=== PATIENT | male | born 1965 | race Caucasian/White ===

== ENCOUNTER 2019-05-29 20:13 | Observation (INO) ==
[2019-05-29] MEDS ORDERED: NS 1,000 ML IV ONE ×3 (20:19→22:10)
[2019-05-29 20:26] LABS: BASO# 0.03 X1000 (0.0-0.2); BASO% 0.3 % (0.0-0.8); EOS# 0.31 X1000 (0.0-0.7); EOS% 3.6 % (0.0-10.0); HEMOGLOBIN 13.8 g/dL (14.0-18.0); IMM GRAN# 0.02 X1000 (0.0-0.04); IMM GRAN% 0.2 % (0.0-0.5); LYMPH# 3.14 X1000 (1.2-3.4); LYMPH% 36.1 % (20.5-51.1); MCH 28.2 PG (27-31); MCHC 33.7 g/dL (33-37); MCV 83.7 FL (81-99); MONO# 0.94 X1000 (0.11-0.59); MONO% 10.8 % (1.7-9.3); MPV 8.7 FL (7.4-10.4); NEUT# 4.27 X1000 (1.4-6.5); PLT 304 X1000 (130-400); RDW 13.2 % (11.5-14.5); WBC 8.71 X1000 (4.8-10.8)
[2019-05-29] MEDS ORDERED: AMMONIA AROMATIC ONE (20:26)
[2019-05-29] MEDS ORDERED: NARCAN ONE (20:31)
[2019-05-29] MEDS ORDERED: NARCAN IV ONE (20:34)
[2019-05-29 20:42] LABS: INR 0.85
--- NOTE | 2019-05-29 20:42 | Diag Imaging Result Doc PS360 ---
EXAM: CT HEAD W/O CONTRAST 05/29/2019 HISTORY: ams TECHNIQUE: This exam was performed using automated exposure control, adjustment of mA or kV according to patient size, and/or use of iterative reconstruction technique. COMMENT: There is no evidence of mass effect, bleed, or abnormal extra-axial fluid collection. There is some lucency in the periventricular white matter adjacent to the left frontal horn. This was also present on 01/08/2013. The visualized paranasal sinuses are clear. The calvarium is intact. There is persistence the metopic suture. IMPRESSION: No evidence of acute intracranial disease. Minimal chronic ischemic white matter change. Electronically signed by Slick Brantley 05/29/2019 8:39 PM
[2019-05-29 20:43] LABS: PTT 25.1 Seconds (22.3-41.8)
[2019-05-29 20:50] LABS: AGAP 14; ALBUMIN 4.6 g/dL (3.5-5.0); ALKALINE PHOSPHATASE 78 U/L (32-122); BUN 14 mg/dL (8-22); CALCIUM 9.5 mg/dL (8.8-10.2); CHLORIDE 95 mmol/L (98-107); COSMO 273; CREATININE 0.9 mg/dL (0.7-1.2); ESTIMATED GFR > 60; GLUCOSE 149 mg/dL (70-104); MAGNESIUM 2.1 mg/dL (1.5-2.7); POTASSIUM 4.4 mmol/L (3.5-5.1); SODIUM 135 mmol/L (136-145); TCO2 27 mmol/L (25-35); TOTAL BILIRUBIN < 0.15 mg/dL (0.20-1.00); TOTAL PROTEIN 7.7 g/dL (6.3-8.3)
[2019-05-29 20:54] LABS: URINE SOURCE CLEAN CATCH
[2019-05-29 20:59] LABS: GOT 17 U/L (10-34); GPT < 5 U/L (10-44)
[2019-05-29 20:59] LABS: BILIRUBIN URINE NEGATIVE (NEGATIVE); BLOOD URINE NEGATIVE (NEGATIVE); COLOR STRAW; GLUCOSE URINE 500 mg/dL (NEGATIVE); KETONE URINE NEGATIVE (NEGATIVE); LEUKOCYTES URINE NEGATIVE (NEGATIVE); NITRITE URINE NEGATIVE (NEGATIVE); PROTEIN URINE NEGATIVE (NEGATIVE); SP GRAVITY URINE 1.009; TURBIDITY URINE CLEAR (CLEAR); UROBILINOGEN URINE NORMAL (NORMAL)
[2019-05-29 21:01] LABS: UR EPITHELIAL CELLS <10 /HPF (<10); URINE BACTERIA NEGATIVE /HPF; URINE RBC <10 /HPF (<10); URINE WBC <10 /HPF (<10)
--- NOTE | 2019-05-29 21:10 | Diag Imaging Result Doc PS360 ---
EXAM: CHEST-PORTABLE 05/29/2019 HISTORY: strioe protocol TECHNIQUE: Erect AP portable chest at 2100 COMMENT: The inspiration is less optimal than on 03/28/2015, otherwise there is no evidence of acute cardiac or pulmonary disease. IMPRESSION: No acute abnormality. Electronically signed by Slick Brantley 05/29/2019 9:08 PM
[2019-05-29 21:12] LABS: UR AMPHETAMINES QUAL NONE DETECTED (NONE DETECT); UR BARBITUATES QUAL NONE DETECTED (NONE DETECT); UR BENZODIAZEPIN QUAL PRESUMPTIVE POSITIVE (NONE DETECT); UR CANNABINOIDS QUAL NONE DETECTED (NONE DETECT); UR COCAINE QUAL NONE DETECTED (NONE DETECT); UR METHADONE QUAL NONE DETECTED (NONE DETECT); UR METHAMPHETAMINE QUAL NONE DETECTED (NONE DETECT); UR OPIATES QUAL NONE DETECTED (NONE DETECT); UR OXYCODONE QUAL NONE DETECTED (NONE DETECT); UR PCP QUAL NONE DETECTED (NONE DETECT); UR PROPOXYPHENE QUAL NONE DETECTED (NONE DETECT); UR TCA QUAL NONE DETECTED (NONE DETECT)
[2019-05-30] MEDS ORDERED: FLU VACCINE IM ONE (01:10)
--- NOTE | 2019-05-30 05:16 | EKG Report ---
Test Performed on : 05/29/2019 8:18:46 PM Test Reason : CP Blood Pressure : / mmHG Vent. Rate : 115 BPM Atrial Rate : 115 BPM P-R Int : 160 ms QRS Dur : 092 ms QT Int : 328 ms P-R-T Axes : 027 -04 029 degrees QTc Int : 453 ms Sinus tachycardia. Otherwise normal ECG When compared with ECG of 28-MAR-2015 13:22, No significant change was found Unconfirmed Result
--- NOTE | 2019-05-30 10:50 | Diag Imaging Result Doc PS360 ---
EXAM: MRI BRAIN W/O CONTRAST HISTORY: AMS TECHNIQUE: MRI brain without contrast. Axial, sagittal, and coronal images obtained in multiple COMPARISON: Head CT from 05/29/2019 FINDINGS: No recent infarct. Mild increased signal in the white matter on the T2 and FLAIR weighted images. No mass or midline shift. No hydrocephalus. No epidural or subdural fluid collection. Normal orbits. No sinus opacification. IMPRESSION: Increased signal in the deep white matter which may be microvascular ischemic changes. No mass or recent infarct. Electronically signed by Delonte Chandler 05/30/2019 10:48 AM
--- NOTE | 2019-05-30 15:12 | Vascular Study Report ---
EXAM: Carotid Ultrasound HISTORY: AMS, unresponsive, h/o CVA TECHNIQUE: Carotid Doppler ultrasound COMPARISON: None. FINDINGS: Right: Flow in the subclavian artery. Normal flow in the common carotid artery. No occlusion or stenosis. Moderate plaque in the bulb. Peak systolic velocity in the internal carotid artery is 85 cm/s. ICA/CC ratio 0.9. Antegrade vertebral flow. Left: Normal flow in the subclavian artery. Normal flow in the common carotid artery. No occlusion or stenosis. There is a small amount of plaque in the bulb. Peak systolic velocity in the internal carotid artery 73 cm/s. The ICA/CCA ratio 0.7. Antegrade vertebral flow. IMPRESSION: Mild stenosis within each carotid bulb of between 30 and 50% Electronically signed by Delonte Chandler 05/30/2019 3:09 PM
--- NOTE | 2019-05-30 16:05 | HISTORY AND PHYSICAL ---
CHIEF COMPLAINT: Altered mental status. HPI: This is a 53-year-old male with a prior history of hypertension, CVA with resulting left- sided weakness, COPD, who presents to the emergency room via EMS after his mother found him unresponsive. At the time of my exam the patient is alone. There is no family members present so history is taken from the ER records as well as the patient's history. On arrival to the emergency room the patient was disoriented, confused, very slow to respond. He did withdraw from an ammonia capsule. CT of the head revealed no acute intracranial disease. He was subsequently admitted to the floor. In reviewing the nurse's notes, he became more alert through the night. At the time of my exam he is awake, he is alert. He is aware that he is at [facility]. He does knows that today is Wednesday. He does not remember coming into the hospital. He remembers waking up on the floor. The patient did state that he lives with his mother and she had been out of town visiting his sister. Wednesday night he took his dog out to walk. He remembers walking out the door. He states the next thing he remembers is his neighbor and his neighbor's having him in the house putting him in a warm shower. He stated he had been incontinent of stool and urine and he was freezing. He stated they cleaned him up, got him warm and called his mother. He thinks that was sometime Wednesday morning. He does not remember his mother coming home. According to the chart, she found him unresponsive and called 911. He denied feeling ill or having any difficulties prior to this episode. He has had no further urine or stool incontinence since presenting to the hospital. PAST MEDICAL HISTORY: 1. According to the chart CVA with left-sided weakness. 2. Diabetes mellitus. 3. COPD. 4. Hypertension. 5. Gastroesophageal reflux disease. 6. BPH. 7. Obstructive sleep apnea. 8. Depression. 9. Gout. PAST SURGICAL HISTORY: Back surgery, knee surgery, neck surgery, skin cancer removed from his right hand. ALLERGIES: Penicillin which causes anaphylaxis. FAMILY HISTORY: Is positive for hypertension and diabetes in parents and grandparents although he is not sure. SOCIAL HISTORY: He lives with his mother. He denies any alcohol, tobacco, or illicit drug use. Primary care doctor is Pantera Renner. REVIEW OF SYSTEMS: Discussed with patient with pertinent positives stated in the HPI. He denied any syncope or known syncope, any dizziness, any chest pain, palpitations, any shortness of breath, cough, fever, chills, nausea, vomiting, diarrhea, constipation, black or bloody vomitus or stools, any hematuria, dysuria, frequency, urgency. PHYSICAL EXAMINATION: GENERAL: This is a 53-year-old gentleman who is sitting up in the bed on the [facility] floor in no distress. VITAL SIGNS: Blood pressure is 141/90 with a heart rate of 89, respirations are 16, temperature is 98.1 degrees with O2 saturations 98 to 100 on 2 L. HEENT: Pupils are equal, round, react to light. EOMs are intact. Sclerae are anicteric. Head is normocephalic, atraumatic. Mucous membranes are moist. NECK: Supple with trachea midline. CARDIOVASCULAR: Regular rate and rhythm. S1 and S2 appreciated. He has no lower extremity edema. Calves are nontender bilateral with peripheral pulses palpable x4 extremities. PULMONARY: Breath sounds are clear with no increased work of breathing noted. Chest rises and falls symmetric respiration. Chest wall is nontender to palpation. GASTROINTESTINAL: Abdomen soft, nontender, nondistended. Bowel sounds in all 4 quadrants. GENITOURINARY: No CVA or suprapubic tenderness. Yates is patent to bedside bag with clear yellow urine drainage. NEUROLOGIC: He is alert, he is oriented to person, to place and to day. Forehead is spared. No facial droop. Speech is clear but slow. Has no tongue or uvula deviation. Shoulder shrug is equal. No plantar drift. Deicer Repairer are equal and strong. Left upper and lower extremity strength is 3/5 with right upper, lower extremity a 4 to 5/5. SKIN: Warm and dry. LABS: WBC is 8.7 with hemoglobin 13.8, hematocrit 41 and platelets 304,000. INR 0.85. Sodium 135, potassium 4.4, BUN 14, creatinine 0.9 with a glucose of 149. Urinalysis is essentially negative. Urine drug screen is presumptive positive for benzodiazepines. CT of the head reveals no evidence of acute intracranial disease. Chest x-ray reveals no acute abnormality. MRI of the brain without contrast, increased signal in the deep white matter which may be microvascular ischemic changes, no mass or recent infarct. EKG is sinus tach at a rate of 115. ASSESSMENT AND PLAN: 1. Altered mental status. 2. History of cerebrovascular accident with resulting left-sided weakness. 3. Diabetes mellitus. 4. Chronic obstructive pulmonary disease. 5. Hypertension. 6. Gastroesophageal reflux disease. 7. Benign prostatic hypertrophy. 8. Reported transient loss of consciousness Wednesday reported 3 days prior. PLAN: Patient has been admitted to the medical-surgical floor, placed on telemetry. neuro checks. aspiration precautions. Physical therapy has been consulted as has speech therapy for swallow eval. echocardiogram, a carotid Doppler. identify his home medications and continue as appropriate. Pattern blood glucose with sliding scale insulin, once the patient starts eating we can transition him over to his home medications as appropriate. The patient is on oxygen. He reports having home oxygen as well as a CPAP machine for sleep apnea although he states that it has been greater than 5 years that both he stated "both of the machines have been broke for more than 5 years so I haven't been using them." He does not remember why he was put on oxygen and he states he has been doing fine without it. We will attempt to contact his mother to evaluate. Plan was discussed with Dr. Salinas. Further treatments pending hospital course. Dictated by HUY Riojas for Shaun Salinas MD cc: HUY Riojas MD [facility]
[2019-05-30] MEDS: HUMALOG (PARKWAY) SUBQ SCH ×2 (17:03→20:50)
--- NOTE | 2019-05-31 06:35 | HISTORY AND PHYSICAL ---
ADDENDUM: Patient seen and examined by myself. Full note dictated and discussed with nurse practitioner. Patient presented to the hospital stating that his found him unresponsive for approximately 45 minutes. He does have a history of diabetes as well as a stroke with residual left-sided weakness. Apparently, in the ER, he is very slow to respond. Currently, he is awake and alert. His speech is slow, but he appears back to his baseline. Uncertain cause of his acute mental status change yesterday that has seemingly completely resolved today. I am going to admit him to the hospital and follow. Please see full note. cc: Shaun Salinas MD
[2019-05-31] MEDS: NEURONTIN PO SCH ×2 (08:59→15:05)
[2019-05-31] MEDS ORDERED: KLOR-CON PO SCH (09:00)
[2019-05-31] MEDS ORDERED: ROBAXIN PO SCH (09:00)
[2019-05-31] MEDS ORDERED: LIORESAL PO SCH (09:00)
[2019-05-31] MEDS ORDERED: LASIX PO SCH (09:00)
[2019-05-31] MEDS ORDERED: NORVASC PO SCH (09:00)
[2019-05-31] MEDS ORDERED: ZYLOPRIM PO SCH (09:00)
[2019-05-31] MEDS ORDERED: GLUCOPHAGE XR PO SCH (09:00)
[2019-05-31] MEDS ORDERED: PROSCAR PO SCH (09:00)
[2019-05-31] MEDS ORDERED: VALIUM PO SCH (09:00)
[2019-05-31] MEDS ORDERED: ACTOS PO SCH (09:00)
[2019-05-31] MEDS ORDERED: ZOLOFT PO SCH (09:00)
[2019-05-31] MEDS: HUMALOG (PARKWAY) SUBQ SCH ×3 (09:05→15:56)
[2019-05-31 20:55] VITALS: BP 164/97
[2019-05-31] MEDS ORDERED: LANTUS INSULIN SUBQ SCH (21:00)
[2019-05-31] MEDS ORDERED: CRESTOR PO SCH (21:00)
--- NOTE | 2019-06-01 12:50 | DISCHARGE SUMMARY ---
ADMISSION DATE: 05/30/2019 DISCHARGE DATE: 05/31/2019 ADDENDUM: Patient was seen and examined by myself. Full note dictated and discussed with nurse practitioner. On discharge, patient is awake, alert, and currently in no distress. Notes that all of his symptoms have resolved. He is back to his baseline. Therefore, we will discharge him home. Please see full note. cc: Shaun Salinas MD
--- NOTE | 2019-06-01 18:38 | DISCHARGE SUMMARY ---
ADMISSION DATE: 05/30/2019 DISCHARGE DATE: 05/31/2019 DIAGNOSES: 1. Altered mental status, resolved. 2. History of cerebrovascular accident with left-sided weakness. 3. Diabetes mellitus. 4. Chronic obstructive pulmonary disease. 5. Hypertension. 6. Gastroesophageal reflux disease. 7. Benign prostatic hypertrophy. DIAGNOSTICS: 1. CT of the head revealed no evidence of acute intracranial disease. 2. Chest x-ray: No acute abnormality. 3. Bilateral carotid Doppler: Mild stenosis within each carotid bulb between 30 and 50%. 4. Brain MRI: Increased signal in the deep white matter which may be microvascular ischemic changes. No mass or recent infarct. 5. EKG reveals sinus tachycardia at a rate of 115. HOSPITAL COURSE: Mr. Rao presented to the emergency room after being found altered by his mother. Thankfully he returned to he has normal state shortly after being admitted. He has been awake and alert. He has had no complaints. He was evaluated by physical therapy. He walked 75 feet with assistance. He did state that he felt he was back to his normal since he had his stroke. Physical therapy did recommend home health PT. The patient agreed at the time of physical therapist's evaluation. Although, today he stated that he did not want had to have physical therapy. He did not want anyone coming into his home discharge. The patient had a Yates catheter placed in the emergency room. This was discontinued on the morning of the and he did void 1,150 after the Yates was discontinued. DISCHARGE PHYSICAL EXAMINATION: Vital Signs: Blood pressure is 141/80 with a heart rate of 90, respirations are 16, temperature is 98.2 degrees oral, with room air saturations 94 to 96%. Cardiovascular: Regular rate and rhythm. S1 and S2 appreciated. He has no lower extremity edema. Calves are nontender bilateral. Peripheral pulses palpable x4 extremities. Pulmonary: Breath sounds are clear. No increased work of breathing noted. Gastrointestinal: Abdomen is soft, nontender, nondistended. Bowel sounds in all 4 quadrants. Neurologic: He is alert and oriented. DISCHARGE MEDICATIONS: 1. Lasix 40 mg p.o. daily. 2. Zoloft 100 mg p.o. daily. 3. Proscar 5 mg p.o. daily. 4. Methocarbamol 750 p.o. b.i.d. 5. Metformin 500 p.o. b.i.d. 6. Baclofen 10 p.o. b.i.d. 7. Gabapentin 800 p.o. t.i.d. 8. Valium 5 mg p.o. b.i.d. 9. Clonidine 0.2 p.o. daily. 10. Amlodipine 10 mg p.o. daily. 11. Allopurinol 100 p.o. daily. 12. Rosuvastatin 20 mg p.o. at bedtime. 13. Lantus insulin 40 units p.o. at bedtime. 14. Actos 30 mg p.o. daily FOLLOW UP: 1. Dr. Pantera Renner, his primary care physician. He needs to call in the morning to be seen in the next 1 to 2 weeks, sooner if needed. 2. He has been instructed to call to be seen sooner or return to the ER for any syncope, dizziness, chest pain, palpitations, any shortness of breath, cough, temperature greater than 101, any nausea, vomiting, diarrhea, constipation, black or bloody vomitus or stools, any hematuria, dysuria, frequency, urgency. DISPOSITION: He is being discharged home in stable condition with family members. TIME SPENT: This is a greater than 30 minute discharge. Dictated by HUY Riojas for Shaun Salinas MD cc: HUY Riojas MD Chad McElroy, MD
--- NOTE | 2019-06-07 13:38 | ECHO REPORT ---
ORDER DATE: 05/30/2019 MEASUREMENTS: Septal thickness 1.1, left ventricular internal diameter in diastole 4.8, posterior wall thickness 1.0, left ventricular internal diameter in systole 3.4, aortic root 3.4, left atrium 3.8. SUMMARY: 1. Adequate quality study. 2. Aortic valve is trileaflet and opens normally on 2-dimensional images. The peak gradient across the aortic valve is approximately 10 mmHg. Mitral, tricuspid, and pulmonic valves are without evidence of structural abnormality with mild mitral regurgitation and trace tricuspid regurgitation. The estimated systolic PA pressure by Doppler is 35 to 40 mmHg, suggesting mild pulmonary hypertension. The aortic root is normal in size. 3. Normal left ventricular dimensions demonstrated. The estimated left ventricular ejection fraction appears to be at least 55%. No regional wall motion abnormalities are evident. The left atrium, right atrium, and right ventricle are normal in size with grossly preserved right ventricular systolic function. 4. No pericardial fusion. 5. Appearance of inferior vena cava suggests normal central venous pressure. cc: MD Lary Pandey CRNP
--- NOTE | 2019-06-19 00:57 | PROVIDER DOCUMENTATION ---
This chart was entered by Janae Dickens Scribe, acting as scribe for Nannette Zuñiga MD. HPI-Neurological Disorder - General Chief Complaint: STROKE ALERT Stated Complaint: sob,chest pain Time Seen by Provider: 05/29/19 20:17 Source: EMS Allergies/Adverse Reactions: Patient Allergies Allergy/AdvReac Type Severity Reaction Status Date / Time Penicillins Allergy Severe ANAPHYLAXIS Verified 02/04/15 10:47 Home Medications: Home Medication List Medication Instructions Recorded Confirmed Last Taken Type Furosemide [Lasix] 40 mg PO DAILY #30 tablet 03/28/15 05/29/19 Unknown Rx Allopurinol 100 mg PO DAILY 05/29/19 05/29/19 Unknown History Amlodipine Besylate 10 mg PO DAILY 05/29/19 05/29/19 Unknown History Baclofen [Lioresal] 10 mg PO BID 05/29/19 05/29/19 Unknown History Clonidine HCl 0.2 mg PO DAILY 05/29/19 05/29/19 Unknown History Diazepam 5 mg PO BID 05/29/19 05/29/19 Unknown History Finasteride [Proscar] 5 mg PO DAILY 05/29/19 05/29/19 Unknown History Gabapentin 800 mg PO TID@0900,1500,2100 05/29/19 05/29/19 Unknown History Insulin Glargine,Hum.rec.anlog 40 units SQ QHS 05/29/19 05/30/19 Unknown History [Lantus Solostar] Meloxicam 15 mg PO DAILY 05/29/19 05/29/19 Unknown History Metformin HCl [Metformin HCl ER] 500 mg PO BID 05/29/19 05/29/19 Unknown History Methocarbamol 750 mg PO BID 05/29/19 05/29/19 Unknown History Pioglitazone HCl 30 mg PO DAILY 05/29/19 05/29/19 Unknown History Potassium Chloride [Klor-Con M20] 40 meq PO DAILY 05/29/19 05/29/19 Unknown History Rosuvastatin Calcium 20 mg PO QHS 05/29/19 05/29/19 Unknown History Sertraline HCl 100 mg PO DAILY 05/29/19 05/29/19 Unknown History - History of Present Illness-Neuro Nature of Presenting Problem: Pt is a 53 yom who presents to the ED via EMS w/ altered metal status. Pts found him unresponsive (45mins). Pt has a hx of diabetes and perales. Pt responds to ammonia but is nonverbal at the moment. Pt pupils are equally responsive. Onset/Duration: reports: just prior to arrival Timing: reports: still present, getting worse Context: reports: found unresponsive by family Approximate time patient was last seen normal?: 07:45 Character of Altered Mental Status: reports: disoriented, confused, decreased responsiveness Character of Deficits: reports: altered sensation Cognitive Baseline: alert but disoriented Gait Baseline: walks without assistance Similar Symptoms Previously?: Yes Recently seen or treated by another doctor?: No Review of Systems - Adult - REVIEW OF SYSTEMS - ADULT Constitutional: reports: see HPI Eyes: reports: no symptoms reported Ears, Nose, Mouth & Throat: reports: no symptoms reported Cardiovascular: reports: no symptoms reported Respiratory: reports: no symptoms reported Gastrointestinal: reports: no symptoms reported Genitourinary: reports: no symptoms reported Musculoskeletal: reports: no symptoms reported Integumentary: reports: no symptoms reported Neurological: reports: see HPI Psychiatric: reports: no symptoms reported Endocrine: reports: no symptoms reported Hematologic/Lymphatic: reports: no symptoms reported Allergic/Immunologic: reports: no symptoms reported All Other Systems: Reviewed and Negative Past History - Adult - PAST MEDICAL HISTORY-ADULT Review of Records: reports: Old Records Reviewed Cardiovascular: reports: HTN, hyperlipidemia Respiratory: reports: COPD Gastrointestinal: reports: GERD, other (enlarged prostate) Musculoskeletal: reports: other (GOUT) Neurological: reports: CVA, stroke deficits (left side weakness) Endocrine/Immune: reports: Diabetes Other Conditions: reports: other cancer ("back") - PRIOR SURGERIES/PROCEDURES Surgical/Procedure History: reports: orthopedic (extremity) - IMMUNIZATION STATUS Childhood Immunizations: See Nurse Assessment Flu Vaccine: See Nurse Assessment - SOCIAL HISTORY Smoking: non-smoker Substance Use: denies Living Situation: family Physical Exam- Neurological - Physical Exam-Neuro General Appearance: alert (but nonverbal, pts pupils are equally responsive.) Eye Exam: bilateral eye: normal inspection HENMT: normocephalic/atraumatic, moist mucous membranes Head Injury: no evidence of injury Neck: non-tender, full range of motion, supple, normal inspection Respiratory: chest non-tender, lungs clear, normal breath sounds Cardiovascular: normal peripheral pulses, regular rate, rhythm, no edema, no gallop, no JVD, no murmur. negative: bradycardia, tachycardia Abdominal Exam: normal bowel sounds, non tender, soft Lymphatic: no adenopathy Extremity: normal range of motion, non-tender, normal inspection Neurologic: abnormal button broacher II-XII, facial droop Integumentary: normal color, normal turgor, warm/dry - Glascow Coma Scale Best Eye Response: (1) no response Best Verbal Response: (1) no verbal response Best Motor Response: (4) withdraws to pain Progress - PLAN OF CARE/RESULTS Progress/Plan/Lab Results: Orders Category Date Time Status Admit Patient To Observation Status Routine AdmDCTranf 05/29/19 22:14 Active Activity - Strict Bedrest ORDERED Care 05/29/19 22:10 Active Cardiac Monitoring DIRECTED Care 05/29/19 20:35 Completed Neurological Check Q4H Care 05/29/19 22:13 Completed Resuscitation Status Routine Care 05/29/19 22:10 Completed Saline Loc DIRECTED Care 05/29/19 22:10 Completed Vital Signs Order Q 4-HR ASSESS Care 05/29/19 22:10 Active Z-Document. for Tele Applied ORDERED Care 05/29/19 22:12 Completed NPO Diet 05/29/19 22:[address] HEAD W/O CONTRAST [CT] Stat Exams 05/29/19 20:18 Completed MRI BRAIN W/O CONTRAST [MRI] Routine Exams 05/30/19 08:00 Completed cxr [CHEST-PORTABLE] [RAD] Stat Exams 05/29/19 20:33 Completed CBC WITH ELECTRONIC DIFF [HEME] Stat Lab 05/29/19 20:20 Completed COMPREHENSIVE METABOLIC PANEL [CHEM] Stat Lab 05/29/19 20:20 Completed LACTATE, PLASMA [CHEM] Stat Lab 05/29/19 20:20 Completed MAGNESIUM [CHEM] Stat Lab 05/29/19 20:20 Completed PROTIME WITH INR [COAG] Stat Lab 05/29/19 20:20 Completed PTT [COAG] Stat Lab 05/29/19 20:20 Completed TROPONIN T Stat Lab 05/29/19 20:20 Completed URINALYSIS W/POSS RFLX CULT [URINALYSIS] Stat Lab 05/29/19 20:44 Completed URINE DRUG SCREEN PL Stat Lab 05/29/19 20:44 Completed 0.9% Sodium Chloride Inj [Ns] 1,000 ml Med 05/29/19 22:10 Discontinued IV 75 mls/hr 0.9% Sodium Chloride Inj [Ns] 1,000 ml Med 05/29/19 20:19 Discontinued IV 999 mls/hr 0.9% Sodium Chloride Inj [Ns] 1,000 ml Med 05/29/19 21:42 Discontinued IV 999 mls/hr Ammonia, Aromatic [Ammonia Aromatic] Med 05/29/19 20:26 Discontinued 1 each .ROUTE .STK-MED ONE Naloxone [Narcan] Med 05/29/19 20:31 Discontinued 2 mg .ROUTE .STK-MED ONE Naloxone [Narcan] Med 05/29/19 20:34 Discontinued 2 mg IV NOW ONE Oxygen Device Routine Oth 05/29/19 22:13 Completed EKG [EKG] Stat Ther 05/29/19 20:19 Draft Result Diagrams: 05/29/19 20:20 05/29/19 20:20 - REASSESSMENT Reassessment #1 Time Reassessed: 20:50 Status: improving Reassessment Comment: Pt is still nonverbal;attempting to follow command. pupils still reactive - XRAY 1 XRAY: Bilateral XRAY Study: Chest Impression: Normal ( EXAM: CHEST-PORTABLE 05/29/2019 HISTORY: strioe protocol TECHNIQUE: Erect AP portable chest at 2100 COMMENT: The inspiration is less optimal than on 03/28/2015, otherwise there is no evidence of acute cardiac or pulmonary disease. IMPRESSION: No acute abnormality. Electronically signed by Slick Brantley 05/29/2019 9:08 PM 05/29/192107 Interpreting Physician: Slick Brantley MD Dictated Date/Time: 05/29/192106 cc: Nannette Zuñiga MD; None,PCP) - CT/MRI 1 CT Study: Head Impression: Normal (EXAM: CT HEAD W/O CONTRAST 05/29/2019 HISTORY: ams TECHNIQUE: This exam was performed using automated exposure control, adjustment of mA or kV according to patient size, and/or use of iterative reconstruction technique. COMMENT: There is no evidence of mass effect, bleed, or abnormal e xtra-axial fluid collection. There is some lucency in the periventricular white matter adjacent to the left frontal horn. This was also present on 01/08/2013. The visualized paranasal sinuses are clear. The calvarium is intact. There is persistence the metopic suture. IMPRESSION: No evidence of acute intracranial disease. Minimal chronic ischemic white matter change. Electronically signed by Slick Brantley 05/29/2019 8:39 PM 05/29/192038 Interpreting Physician: Slick Brantley MD Dictated Date/Time: 05/29/192036 cc: Nannette Zuñiga MD;) - CONSULTS/PCP/HOSPITALIST Notification #1 *Consult/PCP/Hospitalist*: Dr. Ness Hospitalist Time Discussed: 22:09 Reason/Comments: Discuss admission for pt. Consult Disposition: Admit (Dr. Ness accepted admission) Departure - Departure Date of Disposition Decision: 05/29/19 Time of Disposition Decision: 22:50 DIAGNOSIS: AMS (altered mental status) Disposition: ADMITTED INPATIENT Certified Medical Emergency: Emergent Condition: Stable - Critical Care Note This patient required my direct & personal management of CC.: No Attestation - Physician/ NADIA Attestation Patient care was provided by Advanced Practice Provider:: No The physician spent face to face time with patient:: Yes Advanced Practice Provider documentation review:: Supervising physician onsite and consulted in the evaluation and care of this patient. The physician did have a face to face encounter with the patient. This chart was documented by the indicated scribe, (Janae Dickens Scribe) and accurately reflects the services I performed and decisions made by me, Nannette Salmeron MD, as attested by the provider's signature.
== END 2019-05-31 21:15 | disposition home or self-care (01) ==
LOC: P.ED 20:13 → SUATTDRO 05-30 00:06 → P.MEDSURG 05-30 00:06 → INTOOBSV 05-30 00:06
PROVIDERS: ATTEND Family Medicine